=== PATIENT | female | born 1995 | race Caucasian/White ===

== ENCOUNTER 2016-06-12 20:21 | Emergency (ER) | payer OTHER ==
[2016-06-12 20:28] VITALS: TEMP 98.6; BMI 27.2
[2016-06-12] MEDS ORDERED: ACETAMINOPHEN 1000 MG/100 ML VIAL (NON FORMULARY) IVPB ONE (20:38)
[2016-06-12] MEDS ORDERED: SODIUM CHLORIDE 1,000 ML IV STA (20:38)
[2016-06-12] MEDS ORDERED: ACETAMINOPHEN INJECTION 100 ML IVPB ONE (20:58)
[2016-06-12 21:04] LABS: BASOPHIL 0.3 % (0-2.0); MCH 30.2 pg (25.7-33.7); MCHC 34.5 g/dl (32.0-36.0); MEAN CELL VOLUME 87.5 fl (80-96); MEAN PLT VOLUME 9.1 fl (7.5-11.1); NEUTROPHILS 72.2 % (42.8-82.8); PLATELET COUNT 193 K/MM3 (134-434); RDW 13.4 % (11.6-15.6); WHITE BLOOD COUNT 9.4 K/mm3 (4.0-10.0)
[2016-06-12 21:06] LABS: URINE APPEARANCE CLEAR; URINE BILIRUBIN NEGATIVE (NEGATIVE); URINE BLOOD NEGATIVE (NEGATIVE); URINE COLOR COLORLESS; URINE GLUCOSE (UA) NEGATIVE (NEGATIVE); URINE KETONE NEGATIVE (NEGATIVE); URINE LEUK ESTERASE NEGATIVE (NEGATIVE); URINE NITRITE NEGATIVE (NEGATIVE); URINE PROTEIN NEGATIVE (NEGATIVE); URINE UROBILINOGEN NEGATIVE E.U./dl (0.2-1.0)
--- NOTE | 2016-06-12 21:10 | PDOC ---
[id number] is a 20 year old female, who is , approximately 20 weeks , who presents to the ED complaining of suprapubic pain with mild dysuria that began this afternoon. The patient denies fever, chills, nausea, vomiting. She denies abnormal vaginal bleeding or discharge. <Jyoti Aviles - Last Filed: 06/12/16 22:54> - General History Source: Patient Exam Limitations: No Limitations <Ford Mahajan - Last Filed: 06/22/16 07:17> - General Chief Complaint: Pain, Acute Stated Complaint: 20WKS/ABD PAIN Time Seen by Provider: 06/12/16 20:32 Past History <Jyoti Aviles - Last Filed: 06/12/16 22:54> - Past Medical History Other medical history: DENIES - Immunization History Td Vaccination: No Immunization Up to Date: No - Psycho/Social/Smoking Cessation Hx Anxiety: No Suicidal Ideation: No Smoking History: Never smoked Have you smoked in the past 12 months: No Information on smoking cessation initiated: No Hx Alcohol Use: No Drug/Substance Use Hx: No Substance Use Type: None <Ford Mahajan - Last Filed: 06/22/16 07:17> - Past Medical History Allergies/Adverse Reactions: Allergies Allergy/AdvReac Type Severity Reaction Status Date / Time No Known Allergies Allergy Verified 06/12/16 20:28 Home Medications: Ambulatory Orders NK [No Known Home Medication] 06/12/16 Review of Systems - Review of Systems Able to Perform ROS?: Yes Comments:: 06/12/16 21:42 GENERAL/CONSTITUTIONAL: No fever or chills. No weakness. HEAD, EYES, EARS, NOSE AND THROAT: No change in vision. No ear pain or discharge. No sore throat CARDIOVASCULAR: No chest pain or shortness of breath. RESPIRATORY: No cough, wheezing, or hemoptysis. GASTROINTESTINAL: No nausea, vomiting, diarrhea or constipation. GENITOURINARY: +Suprapubic pain, +dysuria. No hematuria. No abnormal vaginal bleeding or discharge. MUSCULOSKELETAL: No joint or muscle swelling or pain. No neck or back pain. SKIN: No rash NEUROLOGIC: No headache, vertigo, loss of consciousness, or change in strength/ sensation. ENDOCRINE: No increased thirst. No abnormal weight change. HEMATOLOGIC/LYMPHATIC: No anemia, easy bleeding, or history of blood clots. ALLERGIC/IMMUNOLOGIC: No hives or skin allergy. <Jyoti Aviles - Last Filed: 06/12/16 22:54> *Physical Exam - Vital Signs Last Vital Signs Temp Pulse Resp BP Pulse Ox 98.6 F 124 H 20 131/71 100 06/12/16 20:24 06/12/16 20:24 06/12/16 20:24 06/12/16 20:24 06/12/16 20:24 - Physical Exam Comments: 06/12/16 21:42 GENERAL: Awake, alert, and fully oriented, in no acute distress HEAD: No signs of trauma EYES: PERRLA, EOMI, sclera anicteric, conjunctiva clear ENT: Auricles normal inspection, hearing grossly normal, nares patent, oropharynx clear without exudates. Moist mucosa NECK: Normal ROM, supple, no lymphadenopathy, JVD, or masses LUNGS: Breath sounds equal, clear to auscultation bilaterally. No wheezes, and no crackles HEART: Tachycardic rate, regular rhythm, normal S1 and S2, no murmurs, rubs or gallops ABDOMEN: Gravid abdomen, suprapubic tenderness to palpation. Normoactive bowel sounds. No guarding, no rebound. No masses EXTREMITIES: Normal range of motion, no edema. No clubbing or cyanosis. No cords, erythema, or tenderness NEUROLOGICAL: Cranial nerves II through XII grossly intact. Normal speech, normal gait SKIN: Warm, Dry, normal turgor, no rashes or lesions noted. <Jyoti Aviles - Last Filed: 06/12/16 22:54> - Vital Signs Last Vital Signs Temp Pulse Resp BP Pulse Ox 98.6 F 124 H 20 131/71 100 06/12/16 20:24 06/12/16 20:24 06/12/16 20:24 06/12/16 20:24 06/12/16 20:24 <Ford Mahajan - Last Filed: 06/22/16 07:17> Heart Score/ECG Review #1 ECG reviewed & interpreted by me at: 20:40 06/12/16 22:46 NSR 103, no std/rasheed, normal axis, normal intervals, QTC 427 msec <Ford Mahajan - Last Filed: 06/22/16 07:17> ED Treatment Course - LABORATORY CBC & Chemistry Diagram: 06/12/16 20:51 06/12/16 20:51 - ADDITIONAL ORDERS Additional order review: Laboratory Results 06/12/16 20:51 Urine Color Colorless Urine Appearance Clear Urine pH 6.0 Ur Specific [place] 1.004 Urine Protein Negative Urine Glucose (UA) Negative Urine Ketones Negative Urine Blood Negative Urine Nitrite Negative Urine Bilirubin Negative Urine Urobilinogen Negative Ur Leukocyte Esterase Negative 06/12/16 20:51 RBC 4.33 MCV 87.5 MCHC 34.5 RDW 13.4 MPV 9.1 Neutrophils % 72.2 Lymphocytes % 20.0 Monocytes % 6.5 Eosinophils % 1.0 Basophils % 0.3 - Medications Given in the ED: ED Medications Discontinued Medications Generic Name Dose Route Start Last Admin Trade Name Freq PRN Reason Stop Dose Admin Acetaminophen 1,000 mg 06/12/16 20:38 06/12/16 21:00 Ofirmev Injection - IVPB 06/12/16 20:39 1,000 mg ONCE ONE Administration Sodium Chloride 1,000 mls @ 1,000 mls/hr 06/12/16 20:38 06/12/16 20:54 Normal Saline - IV 06/12/16 21:37 1,000 mls/hr ASDIR STA Administration <Jyoti Aviles - Last Filed: 06/12/16 22:54> - LABORATORY CBC & Chemistry Diagram: 06/12/16 20:51 06/12/16 20:51 - RADIOLOGY Radiology Studies Ordered: Category Date Time Status ABDOMEN US -LIMITED [US] Stat Ultrasound 06/12/16 20:38 Ordered FOLLOW-UP US [US] Stat Ultrasound 06/12/16 20:38 Ordered <Ford Mahajan - Last Filed: 06/22/16 07:17> Medical Decision Making - Medical Decision Making 06/12/16 22:54 Follow up US read and reviewed by Dr. Macedo shows a single viable intrauterine at 20 weeks 5 days. <Jyoti Aviles - Last Filed: 06/12/16 22:54> - Medical Decision Making 06/12/16 20:42 A portion of this note was documented by scribe services under my direction. I have reviewed the details of the note, within reason, and agree with the documentation with the following case summary and management plan written by me. Patient treated in the ED. Nursing notes are reviewed and incorporated into the medical decision-making. Vital signs reviewed. Peripheral IV access obtained by the nurse, laboratory studies are drawn and sent, reviewed and interpreted by myself. Vital Signs Temp Pulse Resp BP Pulse Ox 98.6 F 124 H 20 131/71 100 06/12/16 20:24 06/12/16 20:24 06/12/16 20:24 06/12/16 20:24 06/12/16 20:24 20-year-old female with no past medical history, 20 weeks presents with lower abdominal pain starting this afternoon. Patient reports discussed the pain with some mild dysuria. Denies back pain. Denies fevers, chills, nausea, vomiting. Denies vaginal bleeding. Differential includes miscarriage, cystitis. Patient is no right lower quadrant pain at this time. We'll obtain labs, urinalysis and ultrasound and we'll send the patient to L&D for heart monitoring. 06/12/16 22:38 CBC, BMP 06/12/16 20:51 06/12/16 20:51 CMP Sodium 138 mmol/L (136-145) 06/12/16 20:51 Potassium 3.8 mmol/L (3.5-5.1) 06/12/16 20:51 Chloride 105 mmol/L (98-107) 06/12/16 20:51 Carbon Dioxide 24 mmol/L (21-32) 06/12/16 20:51 Anion Gap 9 (8-16) 06/12/16 20:51 BUN 10 mg/dL (7-18) 06/12/16 20:51 Creatinine 0.6 mg/dL (0.55-1.02) 06/12/16 20:51 Creat Clearance w eGFR > 60 (>60) 06/12/16 20:51 Random Glucose 80 mg/dL (74-106) 06/12/16 20:51 Calcium 8.2 mg/dL (8.5-10.1) L 06/12/16 20:51 Total Bilirubin 0.4 mg/dL (0.2-1.0) 06/12/16 20:51 AST 22 U/L (15-37) 06/12/16 20:51 ALT 26 U/L (12-78) 06/12/16 20:51 Alkaline Phosphatase 90 U/L (45-117) 06/12/16 20:51 Total Protein 6.4 g/dl (6.4-8.2) 06/12/16 20:51 Albumin 2.9 g/dl (3.4-5.0) L 06/12/16 20:51 Lipase 175 U/L (73-393) 06/12/16 20:51 Urine Test Results Urine Color Colorless 06/12/16 20:51 Urine Appearance Clear 06/12/16 20:51 Urine pH 6.0 (5.0-8.0) 06/12/16 20:51 Ur Specific [place] 1.004 (1.001-1.035) 06/12/16 20:51 Urine Protein Negative (NEGATIVE) 06/12/16 20:51 Urine Glucose (UA) Negative (NEGATIVE) 06/12/16 20:51 Urine Ketones Negative (NEGATIVE) 06/12/16 20:51 Urine Blood Negative (NEGATIVE) 06/12/16 20:51 Urine Nitrite Negative (NEGATIVE) 06/12/16 20:51 Urine Bilirubin Negative (NEGATIVE) 06/12/16 20:51 Ur Leukocyte Esterase Negative (NEGATIVE) 06/12/16 20:51 06/12/16 22:43 Ultrasound demonstrates 150 bpm for cardiac rate and 20 weeks and 5 days. The appendix was unable to visualize. However, the patient had never had endorsed with her quadrant pain. And after giving IV Tylenol, the pain has improved dramatically. I have very little suspicion for appendicitis at this time. And I do not feel the need to pursue a workup further at this time. The blood work that shows no acute findings. Urine is negative. Case was discussed with nurse Ta in L&D who accepts the patient to come to L&D for heart rate monitoring. Patient will go to L&D. <Ford Mahajan - Last Filed: 06/22/16 07:17> *DC/Admit/Observation/Transfer - Attestations Scribe Attestion: 06/12/16 21:45 Documentation prepared by Jyoti Aviles, acting as medical transcriber for Ford Mahajan MD. <Jyoti Aviles - Last Filed: 06/12/16 22:54> - Discharge Dispostion Admit: No <Ford Mahajan - Last Filed: 06/22/16 07:17> Diagnosis at time of Disposition: Abdominal pain affecting - Discharge Dispostion Disposition: HOME Condition at time of disposition: Stable - Referrals Referrals: Klever Augustine MD [Primary Care Provider] - - Patient Instructions Printed Discharge Instructions: DI for Abdominal Pain -- Early Additional Instructions: Your ultrasound and urine studies and blood work shows no findings at this time. Your ultrasound shows a baby at 20 weeks and 5 days and heart rate of 150. You are cleared from the ER to go to L&D. Print Language: FILIPINO
[2016-06-12 21:40] LABS: ALBUMIN 2.9 g/dl (3.4-5.0); ANION GAP 9 (8-16); BILIRUBIN,TOTAL 0.4 mg/dL (0.2-1.0); CALCIUM 8.2 mg/dL (8.5-10.1); CO2 24 mmol/L (21-32); CREATININE 0.6 mg/dL (0.55-1.02); GLUCOSE,RANDOM 80 mg/dL (74-106); SGOT/AST 22 U/L (15-37); SGPT/ALT 26 U/L (12-78); TOT PROT 6.4 g/dl (6.4-8.2)
[2016-06-12 21:41] LABS: ALK PHOS 90 U/L (45-117)
[2016-06-12 22:57] VITALS: BP 114/63; PULSE 84
--- NOTE | 2016-06-13 18:26 | EKG ---
Test Reason : Blood Pressure : / mmHG Vent. Rate : 103 BPM Atrial Rate : 103 BPM P-R Int : 146 ms QRS Dur : 080 ms QT Int : 326 ms P-R-T Axes : 051 010 038 degrees QTc Int : 427 ms SINUS TACHYCARDIA OTHERWISE NORMAL ECG NO PREVIOUS ECGS AVAILABLE CLINICAL CORRELATION IS RECOMMENDED Confirmed by ANA LIN, WILLIAM ([id number]) on 06/13/2016 6:25:56 PM Referred By: Confirmed By:WILLIAM PEREZ MD
== END 2016-06-12 22:58 | disposition home or self-care (01) ==
LOC: JER 20:21
DX: O26.892 Other specified pregnancy related conditions, second trimester (principal); R10.30 Lower abdominal pain, unspecified; Z3A.20 20 weeks gestation of pregnancy
CPT/HCPCS: 36415; 76816-TC; 76856-TC; 80053; 81003; 83690; 85025; 87086; 93005; 93010; 99283-25

== ENCOUNTER 2016-08-04 18:59 | Emergency (ER) | payer OTHER ==
--- NOTE | 2016-08-04 19:07 | PDOC ---
Rapid Medical Evaluation Time Seen by Provider: 08/04/16 19:01 Medical Evaluation: Allergies Allergy/AdvReac Type Severity Reaction Status Date / Time No Known Allergies Allergy Verified 06/12/16 20:28 I have performed a brief in-person evaluation of this patient. The patient presents with a chief complaint of: . vaginal pain radiating to back x 3 days as well as dysuria; patient is approximately 28 weeks with due date of 10/25/16. no vaginal bleeding. Pertinent physical exam findings: Suprapubic TTP. I have ordered the following: UA/culture The patient will proceed to the ED for further evaluation.
[2016-08-04 19:11] VITALS: BMI 30.7
[2016-08-04 19:36] LABS: URINE APPEARANCE CLOUDY; URINE BILIRUBIN NEGATIVE (NEGATIVE); URINE BLOOD NEGATIVE (NEGATIVE); URINE COLOR YELLOW; URINE GLUCOSE (UA) NEGATIVE (NEGATIVE); URINE KETONE NEGATIVE (NEGATIVE); URINE NITRITE NEGATIVE (NEGATIVE); URINE UROBILINOGEN NEGATIVE E.U./dl (0.2-1.0)
[2016-08-04 19:59] LABS: URINE LEUK ESTERASE 1+ (NEGATIVE); URINE PROTEIN 1+ (NEGATIVE)
[2016-08-04 20:01] LABS: URINE RBC 3 /hpf (0-3); URINE WBC 4 /hpf (3-5); YEAST FEW
[2016-08-04] MEDS ORDERED: ACETAMINOPHEN 325 MG TABLET (FP) PO ONE (20:40)
--- NOTE | 2016-08-04 20:44 | PDOC ---
History of Present Illness - General Chief Complaint: Urinary Problem Stated Complaint: STOMACH PAIN/7 MONTHS Time Seen by Provider: 08/04/16 19:01 - History of Present Illness Initial Comments: 08/04/16 20:37 CHIEF COMPLAINT: urinary frequency HISTORY OF PRESENT ILLNESS: 21 yo 28 wk F presents to fast track with urinary frequency and discomfort x 3 days. Patient reports that she has discomfort when she urinates, "like I can't." She denies any burning sensation when urinating, fever, chills, nausea, vomiting, or diarrhea. She also c/o of back pain to the middle of her back. PAST MEDICAL HISTORY: Denies past medical history FAMILY HISTORY: Denies SOCIAL HISTORY: Denies tobacco, alcohol, illicit drug use. SURGICAL HISTORY: Denies ALLERGIES: No known drug allergies REVIEW OF SYSTEMS General/Constitutional: Denies fever or chills. Denies weakness, weight change. HEENT: Denies change in vision. Denies ear pain or discharge. Denies sore throat. Cardiovascular: Denies chest pain or shortness of breath. Respiratory: Denies cough, wheezing, or hemoptysis. Gastrointestinal: Denies nausea, vomiting, diarrhea or constipation. Denies rectal bleeding. Genitourinary: Denies dysuria, frequency, or change in urination. Musculoskeletal: Denies joint or muscle swelling or pain. Denies neck or back pain. Skin and breasts: Denies rash or easy bruising. Neurologic: Denies headache, vertigo, loss of consciousness, or loss of sensation. PHYSICAL EXAM General Appearance: Well-appearing, appropriately dressed. No apparent distress. HEENT: EOMI, PERRLA, normal ENT inspection, normal voice, TMs normal, pharynx normal. No conjunctival pallor. No photophobia, scleral icterus. Neck: Supple. Trachea midline. No tenderness, rigidity, carotid bruit, stridor , lymphadenopathy, or thyromegaly. Respiratory/Chest: Lungs CTAB. No shortness of breath, chest tenderness, respiratory distress, accessory muscle use. No crackles, rales, rhonchi, stridor , wheezing, dullness Cardiovascular: RRR. S1, S2. No JVD, murmur, bradycardia, tachycardia. Vascular Pulses: Dorsalis-Pedis (R): 2+, Dorsalis-Pedis (L): 2+ Gastrointestinal/Abdominal: Normal bowel sounds. Abdomen soft, non-distended. No tenderness or rebound tenderness. No organomegaly, pulsatile mass, guarding , hernia, hepatomegaly, splenomegaly. Lymphatic: No adenopathy, tenderness. Musculoskeletal/Extremities: Reproducible tenderness on palpation to mid lower back. Normal inspection. FROM of all extremities, normal capillary refill. Pelvis Stable. No CVA tenderness. No tenderness to extremities, pedal edema, swelling, erythema or deformity. Integumentary: Appropriate color, dry, warm. 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 Fully oriented, alert. Appropriate mood/affect. Motor strength 5/5. No appreciable EOM palsy, facial droop or sensory deficit. Past History - Past Medical History Allergies/Adverse Reactions: Allergies Allergy/AdvReac Type Severity Reaction Status Date / Time No Known Allergies Allergy Verified 08/04/16 19:08 Home Medications: Ambulatory Orders NK [No Known Home Medication] 06/12/16 Other medical history: Pt denies - Immunization History Td Vaccination: No Immunization Up to Date: No - Psycho/Social/Smoking Cessation Hx Anxiety: No Suicidal Ideation: No Smoking History: Never smoked Have you smoked in the past 12 months: No Information on smoking cessation initiated: No Hx Alcohol Use: No Drug/Substance Use Hx: No Substance Use Type: None *Physical Exam - Vital Signs Last Vital Signs Temp Pulse Resp BP Pulse Ox 98.1 F 84 20 128/71 100 08/04/16 19:08 08/04/16 19:08 08/04/16 19:08 08/04/16 19:08 08/04/16 19:08 ED Treatment Course - ADDITIONAL ORDERS Additional order review: Laboratory Results 08/04/16 19:15 Urine Color Yellow Urine Appearance Cloudy Urine pH 8.0 D Urine Protein 1+ H Urine Glucose (UA) Negative Urine Ketones Negative Urine Blood Negative Urine Nitrite Negative Urine Bilirubin Negative Urine Urobilinogen Negative Ur Leukocyte Esterase 1+ H Urine RBC 3 Urine WBC 4 Ur Epithelial Cells Rare Urine Yeast Few Medical Decision Making - Medical Decision Making 08/04/16 20:44 21 yo 28 wk F presents to fast track with urinary frequency and discomfort x 3 days. -UA, Ucx UA negative for UTI. Back pain reproducible on palpation, likely musculoskeletal. 650 mg Tylenol Patient transferred to L&D for further evaluation.
[2016-08-04] MEDS ORDERED: ACETAMINOPHEN 325 MG TABLET (FP) ONE (20:45)
[2016-08-04 21:43] VITALS: PULSE 87; TEMP 98
[2016-08-04 21:52] VITALS: BP 125/67
== END 2016-08-04 21:40 | disposition home or self-care (01) ==
LOC: JER 18:59 → JERFT 18:59 → JER 21:40
DX: O26.893 Other specified pregnancy related conditions, third trimester (principal); M54.5 Low back pain; R10.30 Lower abdominal pain, unspecified; Z3A.28 28 weeks gestation of pregnancy
CPT/HCPCS: 81003; 81015; 87086; 99281-25

== ENCOUNTER 2016-10-20 08:00 | Inpatient (IN) | payer OTHER ==
[2016-10-20 08:55] VITALS: BMI 33.0
[2016-10-20] MEDS ORDERED: ELECTROLYTE-148 SOLN 500 ML IV ONE (09:00)
[2016-10-20] MEDS ORDERED: CITRIC ACID/SODIUM CITRATE 30 ML UNIT-DOSE CUP PO ONE (09:00)
[2016-10-20] MEDS ORDERED: ELECTROLYTE-148 SOLN 500 ML IV SCH (09:30)
--- NOTE | 2016-10-20 10:34 | HP ---
Past Medical History - Primary Care Physician PCP:: Milo Garcia - Admission Chief Complaint: 39 .2 weeks, previous c/s , request of repeat c/s History of Present Illness: 21 yo f [id number] one previous c/s requesting repeat c/s, rba discussed , discused, cx clp, vx -3 mi, fhr cat 1 History Source: Patient Limitations to Obtaining History: No Limitations - Past Medical History ...: 2 ...Para: 1 ...Term: 1 ...: 0 ...Spon : 0 ...Induced : 0 ...Multiple Gestation: 0 ...LMP: 01/19/16 ... Weeks Gestation by Dates: 39.2 ...EDC by Dates: 10/25/16 ...EDC by Sono: 10/25/16 - Past Surgical History Past Surgical History: Yes: Hx Myomectomy: No Hx Transabdominal Cerclage: No - Smoking History Smoking history: Never smoked Have you smoked in the past 12 months: No - Alcohol/Substance Use Hx Alcohol Use: No - Social History History of Recent Travel: No Home Medications - Allergies Allergies/Adverse Reactions: Allergies Allergy/AdvReac Type Severity Reaction Status Date / Time No Known Allergies Allergy Verified 10/20/16 08:34 - Home Medications Home Medications: Ambulatory Orders Vit/Iron Fumarate/FA [ Tablet] 1 each PO DAILY 10/07/16 Review of Systems - Review of Systems Constitutional: reports: No Symptoms Eyes: reports: No Symptoms HENT: reports: No Symptoms Neck: reports: No Symptoms Cardiovascular: reports: No Symptoms Respiratory: reports: No Symptoms Gastrointestinal: reports: No Symptoms Genitourinary: reports: Frequency Musculoskeletal: reports: No Symptoms Integumentary: reports: No Symptoms Neurological: reports: No Symptoms Endocrine: reports: No Symptoms Hematology/Lymphatic: reports: No Symptoms Psychiatric: reports: No Symptoms Physical Exam - Maternity Vital Signs: Vital Signs Temperature 97.8 F 10/20/16 08:00 Pulse Rate 103 H 10/20/16 08:00 Respiratory Rate 18 10/20/16 08:00 Blood Pressure 132/71 10/20/16 08:00 O2 Sat by Pulse Oximetry (%) Constitutional: Yes: Well Nourished, No Distress, Calm Eyes: Yes: WNL, Conjunctiva Clear, EOM Intact HENT: Yes: WNL, Atraumatic, Normocephalic Neck: Yes: WNL, Supple, Trachea Midline Cardiovascular: Yes: WNL, Regular Rate and Rhythm Breast(s): Yes: WNL - Abdominal Exam/OB Fundal Height: 40 Number of Fetuses: Single Presentation: Vertex Contractions: No Intensity: Unaware Monitor Mode: External Heart Rate Location: [facility] Category: I Accelerations: Uniform Decelerations: None - Vaginal Exam/OB Vaginal Bleediing: No Speculum Exam: No Dilatation (cm): closed Effacement (%): 0 Amniotic Membrane Status: Intact Presentation: Vertex/Position Station: -3 - Physical Exam Musculoskeletal: Yes: WNL Extremities: Yes: WNL Edema: Yes Edema: LLE: Trace, RLE: Trace Integumentary: Yes: WNL Deep Tendon Reflex Grade: Normal +2 Psychiatric: Yes: WNL Hemorrhage Risk Assessment - Risk Factors Medium Risk Factors: Yes: None High Risk Factors: Yes: None Risk Score: 1 Risk Level: Medium Risk Problem List - Problems (1) with 39 completed weeks gestation Code(s): Z3A.39 - 39 WEEKS GESTATION OF (2) Previous delivery affecting Code(s): O34.219 - MATERNAL CARE FOR UNSP TYPE SCAR FROM PREVIOUS DEL Assessment/Plan admit for repeat c/s rba discussed
[2016-10-20] MEDS ORDERED: BENZOCAINE 28 GM HEMORRHOIDAL OINTMENT PR PRN (11:38)
[2016-10-20] MEDS ORDERED: diphenhydrAMINE HCL 25 MG CAPSULE (FP) PO PRN (11:38)
[2016-10-20] MEDS ORDERED: oxyCODONE HCL 5 MG TABLET PO PRN (11:38)
[2016-10-20] MEDS ORDERED: WITCH HAZEL 50% (TUCKS) 40 PAD/JAR PAD TP PRN (11:38)
[2016-10-20] MEDS ORDERED: BENZOCAINE 20% 57 GM BOTTLE TP PRN (11:38)
[2016-10-20] MEDS ORDERED: IBUPROFEN 800 MG/8 ML IJ IVPB PRN (11:38)
[2016-10-20] MEDS ORDERED: METHYLERGONOVINE MALEATE 0.2 MG/1 ML AMP IM PRN (11:38)
[2016-10-20] MEDS ORDERED: OXYTOCIN 20 UNITS in 0.9% NS 1,000 ML IV SCH (11:45)
[2016-10-20] MEDS ORDERED: DEXTROSE 5%-LACTATED RINGERS 1,000 ML IV SCH (11:45)
[2016-10-20] MEDS ORDERED: ONDANSETRON 4 MG/2 ML VIAL IVPB PRN (12:06)
[2016-10-20] MEDS: CEFAZOLIN 1 GM/D5W 50 ML IVPB SCH (17:58)
[2016-10-21] MEDS: CEFAZOLIN 1 GM/D5W 50 ML IVPB SCH (01:01)
--- NOTE | 2016-10-21 06:57 | OP ---
DATE OF OPERATION: 10/20/2016 PREOPERATIVE DIAGNOSIS: at 39 weeks, previous section, requesting repeat section. POSTOPERATIVE DIAGNOSIS: at 39 weeks, previous section, requesting repeat section. PROCEDURE: Repeat low segment transverse section. SURGEON: Milo Braswell MD CDS SALES ADVISOR: SASKIA Sousa ANESTHESIA: Spinal anesthesia by Dr. Marion. ESTIMATED BLOOD LOSS: 500 mL. FINDINGS: Live baby boy, of 9 and 9, ROP position, cord around the feet x1. OPERATION: The patient was taken to the operating room and had adequate spinal anesthesia. Abdomen and perineum were prepped and draped. Pfannenstiel abdominal skin incision was made. Abdominal wall was cut layer by layer until the peritoneum was exposed and incised. Upon entering the abdominal cavity, the lower uterine segment was identified. Using scissors, a bladder flap was established. The bladder was pushed down. A low transverse uterine incision was made and the incision was extended bilaterally. The amniotic sac was entered with clear fluid. Head delivered and then the nasal sinuses were suctioned. Live baby boy was delivered. Placenta was delivered manually. Uterine cavity was cleared of all remaining tissue. Uterine incision was closed in 2 layers; 1st layer with 0 Biosyn continuous suture and the 2nd layer with 0 Biosyn imbricating the 1st layer. Bladder flap was closed with 0 Biosyn suture. Both tubes and ovaries were checked and were normal. No active bleeding was seen. All of the lap, sponge, and instrument counts were correct. The peritoneum was closed with 0 Biosyn continuous suture. Muscles were brought together with interrupted sutures of 0 Biosyn. Fascia was closed with 0 Biosyn continuous suture, subcutaneous fat with interrupted suture of 0 Biosyn, and skin was closed with 3-0 Vicryl subcuticular suture. Patient tolerated the procedure well, left the OR in good condition. Ailin [id number]
[2016-10-21 08:14] LABS: BASOPHIL 0.4 % (0-2.0); EOSINOPHIL 0.3 % (0-4.5); MCH 30.3 pg (25.7-33.7); MCHC 33.4 g/dl (32.0-36.0); MEAN CELL VOLUME 90.9 fl (80-96); MEAN PLT VOLUME 8.7 fl (7.5-11.1); NEUTROPHILS 78.2 % (42.8-82.8); PLATELET COUNT 166 K/MM3 (134-434); RDW 13.6 % (11.6-15.6); WHITE BLOOD COUNT 15.6 K/mm3 (4.0-10.0)
--- NOTE | 2016-10-21 08:53 | PN ---
Post Progress Note - Subjective Subjective: c/o pain at op site scale 7-8/10 not voided yet Post Day: 1 Type of Delivery: Repeat C/S Vital Signs: Vital Signs Temperature 97.8 F 10/21/16 00:00 Pulse Rate 82 10/21/16 00:00 Respiratory Rate 18 10/21/16 07:00 Blood Pressure 117/55 10/21/16 00:00 O2 Sat by Pulse Oximetry (%) 100 10/20/16 14:00 Breast Exam: Yes: Soft. No: Engorged Uterus: Yes: Fundus Firm, Fundus below umbilicus, Non-tender Incision: Yes: Dressing dry and intact. No: Redness, Oozing Abdomen/GI: Yes: Abdomen soft (bs active ), Tender, Passing flatus, Tolerating PO (clear fluids ). No: Abdominal Distention Lochia: Yes: Rubra Lochia, amount: Moderate Extremities: Yes: Calves non-tender Perineum: Yes: Intact Activity: Other (not oob yet ) - Labs Labs: CBC WBC 15.6 K/mm3 (4.0-10.0) H D 10/21/16 07:00 RBC 3.81 M/mm3 (3.60-5.2) 10/21/16 07:00 Hgb 11.5 GM/dL (10.7-15.3) 10/21/16 07:00 Hct 34.6 % (32.4-45.2) 10/21/16 07:00 MCV 90.9 fl (80-96) 10/21/16 07:00 MCH 30.3 pg (25.7-33.7) 10/21/16 07:00 MCHC 33.4 g/dl (32.0-36.0) 10/21/16 07:00 RDW 13.6 % (11.6-15.6) 10/21/16 07:00 Plt Count 166 K/MM3 (134-434) 10/21/16 07:00 MPV 8.7 fl (7.5-11.1) 10/21/16 07:00 Neutrophils % 78.2 % (42.8-82.8) 10/21/16 07:00 Lymphocytes % 14.6 % (8-40) D 10/21/16 07:00 Monocytes % 6.5 % (3.8-10.2) 10/21/16 07:00 Eosinophils % 0.3 % (0-4.5) 10/21/16 07:00 Basophils % 0.4 % (0-2.0) 10/21/16 07:00 Other Findings, Remarks: i/o adequate RS cta Assessment/Plan stable. encourage po fluids, ambulation, deep breathing
[2016-10-21] MEDS: ENOXAPARIN NA (PORCINE) 40 MG/0.4 ML DISP.SYRIN SQ SCH (09:00)
--- NOTE | 2016-10-21 10:54 | PN ---
Progress Note, Physician Chief Complaint: Pt. ambulating, not yet voided. Pain controlled, no FERNANDO. No anesthesia complaints. - Current Medication List Current Medications: Active Medications Benzocaine (Americaine Ointment -) 1 applic CA PRN PRN PRN Reason: PAIN Benzocaine (Americaine 20% [place] -) 1 spray TP PRN PRN PRN Reason: PAIN Bisacodyl (Dulcolax Suppository -) 10 mg CA PRN PRN PRN Reason: CONSTIPATION Diphenhydramine HCl (Benadryl -) 25 mg PO Q8H PRN PRN Reason: FOR ITCHING Diphenhydramine HCl (Benadryl Injection -) 25 mg IVPUSH Q4H PRN PRN Reason: Pruritis Last Admin: 10/20/16 16:56 Dose: 25 mg Enoxaparin Sodium (Lovenox -) 40 mg SQ DAILY [facility] Last Admin: 10/21/16 09:00 Dose: 40 mg Dextrose/Lactated Ringer's (D5-Lr -) 1,000 mls @ 125 mls/hr IV ASDIR [facility] Last Admin: 10/20/16 23:30 Dose: Not Given Ibuprofen (Motrin -) 600 mg PO Q4H PRN PRN Reason: PAIN Methylergonovine Maleate (Methergine Injection -) 0.2 mg IM Q4H PRN PRN Reason: EXCESSIVE BLEEDING Oxycodone HCl (Roxicodone -) 5 mg PO Q4H PRN PRN Reason: PAIN LEVEL 1-5 Oxycodone HCl (Roxicodone -) 10 mg PO Q4H PRN PRN Reason: PAIN LEVEL 6-10 Senna/Docusate Sodium (Pericolace -) 2 tablet PO HS PRN PRN Reason: CONSTIPATION Simethicone (Mylicon -) 80 mg PO Q4H PRN PRN Reason: GAS Witch Marilu/Glycerin (Tucks Pads -) 1 pad TP PRN PRN PRN Reason: PAIN - Objective Vital Signs: Vital Signs Temperature 97.8 F 10/21/16 00:00 Pulse Rate 82 10/21/16 00:00 Respiratory Rate 18 10/21/16 09:00 Blood Pressure 117/55 10/21/16 00:00 O2 Sat by Pulse Oximetry (%) 100 10/20/16 14:00 Constitutional: Yes: Well Nourished, No Distress, Calm Musculoskeletal: Yes: WNL Neurological: Yes: WNL, Alert, Oriented ...Motor Strength: WNL Labs: CBC, BMP 10/21/16 07:00 Assessment/Plan POD#1 s/p repeat under spinal with duramorph. Doing well. D/C from anesthesia care once she voids.
[2016-10-21] MEDS ORDERED: BISACODYL 10 MG SUPP.RECT PR PRN (11:38)
--- NOTE | 2016-10-21 11:45 | SURG ---
Surgery Instructor Decorating Note Instructor Decorating: Roxy Adorno PA-C Date of Service: 10/20/16 Diagnosis: 39 weeks, previous section Procedure: repeat low segment transverse cescean section I was present for the entirety of the operative procedure. For further detail, please refer to operative report. Visit type - Case Type Case Type: Scheduled Admission - Emergency Emergency Visit: No - New patient This patient is new to me today: Yes Date on this admission: 10/21/16 - Critical Care Critical Care patient: No
[2016-10-21] MEDS: oxyCODONE HCL 5 MG TABLET PO PRN (21:35)
[2016-10-21] MEDS: IBUPROFEN 600 MG TABLET (FP) PO PRN (21:37)
[2016-10-22] MEDS: ENOXAPARIN NA (PORCINE) 40 MG/0.4 ML DISP.SYRIN SQ SCH (10:09)
--- NOTE | 2016-10-22 10:13 | PN ---
Post Progress Note - Subjective Subjective: 21 yo Para 2 status post repeat , seen and evaluated. Post Day: 2 Type of Delivery: Repeat C/S Vital Signs: Vital Signs Temperature 98.0 F 10/22/16 09:28 Pulse Rate 85 10/22/16 09:28 Respiratory Rate 18 10/22/16 09:28 Blood Pressure 101/73 10/22/16 09:28 O2 Sat by Pulse Oximetry (%) 99 10/21/16 21:00 Breast Exam: Yes: Soft Uterus: Yes: Fundus Firm Incision: Yes: Dressing dry and intact Abdomen/GI: Yes: Abdomen soft, Tolerating PO Lochia: Yes: Rubra Lochia, amount: Small Extremities: Yes: Calves non-tender Perineum: Yes: Intact Activity: Ambulating - Labs Labs: CBC WBC 15.6 K/mm3 (4.0-10.0) H D 10/21/16 07:00 RBC 3.81 M/mm3 (3.60-5.2) 10/21/16 07:00 Hgb 11.5 GM/dL (10.7-15.3) 10/21/16 07:00 Hct 34.6 % (32.4-45.2) 10/21/16 07:00 MCV 90.9 fl (80-96) 10/21/16 07:00 MCH 30.3 pg (25.7-33.7) 10/21/16 07:00 MCHC 33.4 g/dl (32.0-36.0) 10/21/16 07:00 RDW 13.6 % (11.6-15.6) 10/21/16 07:00 Plt Count 166 K/MM3 (134-434) 10/21/16 07:00 MPV 8.7 fl (7.5-11.1) 10/21/16 07:00 Neutrophils % 78.2 % (42.8-82.8) 10/21/16 07:00 Lymphocytes % 14.6 % (8-40) D 10/21/16 07:00 Monocytes % 6.5 % (3.8-10.2) 10/21/16 07:00 Eosinophils % 0.3 % (0-4.5) 10/21/16 07:00 Basophils % 0.4 % (0-2.0) 10/21/16 07:00 Problem List - Problems (1) Status post repeat low transverse section Code(s): Z98.891 - HISTORY OF UTERINE SCAR FROM PREVIOUS SURGERY Assessment/Plan Status post repeat Stable Ambulation Continue routine post op care
[2016-10-22] MEDS: IBUPROFEN 600 MG TABLET (FP) PO PRN ×2 (18:16→21:49)
[2016-10-22] MEDS: SIMETHICONE 80 MG TAB.CHEW (FP) PO PRN ×2 (18:16→21:49)
[2016-10-22] MEDS: oxyCODONE HCL 5 MG TABLET PO PRN ×2 (18:17→21:48)
[2016-10-22] MEDS ORDERED: SENNOSIDES/DOCUSATE COMBO (SENNA PLUS) TABLET (UD) PO PRN (22:00)
[2016-10-22 22:53] VITALS: TEMP 97.5
[2016-10-23 07:55] LABS: BASOPHIL 0.6 % (0-2.0); EOSINOPHIL 2.9 % (0-4.5); MCH 30.8 pg (25.7-33.7); MCHC 33.9 g/dl (32.0-36.0); MEAN CELL VOLUME 90.8 fl (80-96); MEAN PLT VOLUME 8.7 fl (7.5-11.1); NEUTROPHILS 68.5 % (42.8-82.8); PLATELET COUNT 181 K/MM3 (134-434); RDW 13.6 % (11.6-15.6); WHITE BLOOD COUNT 8.6 K/mm3 (4.0-10.0)
[2016-10-23] MEDS: SIMETHICONE 80 MG TAB.CHEW (FP) PO PRN (10:51)
[2016-10-23] MEDS: IBUPROFEN 600 MG TABLET (FP) PO PRN (10:51)
[2016-10-23] MEDS: ENOXAPARIN NA (PORCINE) 40 MG/0.4 ML DISP.SYRIN SQ SCH (10:51)
--- NOTE | 2016-10-23 11:22 | PATH ---
Surgical Pathology Report Patient Name: YOLANDA COURTNEY Med. Rec. 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 Specimen(s) Received PLACENTA Clinical History , previous section, 39.2 weeks Final Diagnosis PLACENTA, DELIVERY: FOCALLY DISRUPTED THIRD TRIMESTER PLACENTA WITH THREE VESSEL UMBILICAL CORD AND UNREMARKABLE PLACENTAL MEMBRANES. Electronically Signed Jarrett Copeland M.D. Gross Description The specimen is received fresh labeled placenta and is a 462 gram, 17 x 16 x 2.3 cm. placenta with attached membranes and umbilical cord. The attached membranes are glistening and translucent and insert marginally. The umbilical cord measures 45 cm. in length and averages 1.2 cm. in diameter. The cord inserts eccentrically, 5 cm. to the nearest margin. No true knots or strictures are identified. Cut surface of the umbilical cord reveals 3 vessels. The surface is hackett-blue with minimal fibrin deposition and appropriate caliber vessels. The maternal surface is red-brown with focal defects. Sectioning reveals red-brown, spongy parenchyma. No lesions are identified. Project Manager Senior sections are submitted in three cassettes as follows: 1- membrane rolls and umbilical cord; 2-3- full thickness sections of placenta. [facility]/10/22/2016 [facility]/10/22/2016
[2016-10-23 12:49] VITALS: BP 110/48; PULSE 73
--- NOTE | 2016-10-27 12:08 | DS ---
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 Vital Signs: Vital Signs Temperature 97.5 F L 10/23/16 10:00 Pulse Rate 73 10/23/16 10:00 Respiratory Rate 20 10/23/16 10:00 Blood Pressure 110/48 10/23/16 10:00 O2 Sat by Pulse Oximetry (%) 99 10/21/16 21:00 Constitutional: Yes: Well Nourished, No Distress, Calm Eyes: Yes: WNL, Conjunctiva Clear, EOM Intact HENT: Yes: WNL, Atraumatic, Normocephalic Neck: Yes: WNL, Supple, Trachea Midline Cardiovascular: Yes: WNL, Regular Rate and Rhythm Respiratory: Yes: WNL, Regular, CTA Bilaterally Gastrointestinal: Yes: WNL ...Rectal Exam: Yes: WNL Renal/: Yes: WNL ....Post : Yes: Uterus firm, Uterus non-tender, Slight lochia rubra Breast(s): Yes: WNL Musculoskeletal: Yes: WNL Extremities: Yes: WNL Edema: No Integumentary: Yes: WNL Wound/Incision: Yes: Clean/Dry, Well Approximated, Sutures Intact Neurological: Yes: WNL, Alert, Oriented ...Motor Strength: WNL Psychiatric: Yes: WNL, Alert, Oriented Labs: CBC, BMP 10/23/16 07:09 Delivery - Delivery Section: Repeat, Low Flap Transverse (no complication) Type of Anesthesia: Spinal EBL (cc): 500 Delivery, Single - Stages of Labor Date of Delivery: 10/20/16 Time of Delivery: 11:15 Time Placenta Delivered: 11:16 Placenta: Yes: Manual Removal - 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 Present: Yes Name: Livia Pruitt Infant Gender: Male Weight: 7 lb 4 oz Position: Right, OT Total Hours ROM (Hrs/Mins): 2 minutes - 1 Minute Total Score: 9 5 Minutes Total Score: 9 - Feeding Plan Initial Plan: Elected not to breastfeed exclusively throughout hospitalization Discharge Summary Reason For Visit: C SECTION Procedures: Principal: repeat LST c/s Condition: Good - Instructions Diet, Activity, Other Instructions: regular diet, if pain , fever, heavy bleeding call Referrals: Milo Garcia MD [Staff Physician] - Disposition: HOME - Home Medications Comprehensive Discharge Medication List: Ambulatory Orders Vit/Iron Fumarate/FA [ Tablet] 1 each PO DAILY 10/07/16 Ibuprofen [Motrin -] 600 mg PO QID #28 tablet 10/23/16
== END 2016-10-23 12:20 | disposition home or self-care (01) | DRG 540 ==
LOC: JLDR 08:00 → J3W 14:16
PROVIDERS: ADMIT Obstetrics & Gynecology; ATTEND Obstetrics & Gynecology
PROC: 10D00Z1 Extraction of Products of Conception, Low, Open Approach (ICD-10-PCS; principal; 2016-10-20)
DX: O34.211 Maternal care for low transverse scar from previous cesarean delivery (principal); N85.8 Other specified noninflammatory disorders of uterus; Z3A.39 39 weeks gestation of pregnancy; Z37.0 Single live birth
CPT/HCPCS: 36415; 85025; 88307-TC